=== PATIENT | male | born 1995 | race African-American/Black ===

== ENCOUNTER 2020-09-01 00:06 | Emergency (ER) | payer OTHER ==
[~2020-09-01] VITALS: Ht 167.6 cm; Wt 65.8 kg
[2020-09-01] MEDS ORDERED: IBUPROFEN600 M1 ORAL (00:43)
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
[2020-09-01 00:52] VITALS: BP 124/59
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
== END 2020-09-01 01:40 | disposition home or self-care (01) ==
LOC: EMR 00:23
DX: S16.1XXA Strain of muscle, fascia and tendon at neck level, initial encounter (principal); V42.6XXA Car passenger injured in collision with two- or three-wheeled motor vehicle in traffic accident, initial encounter; Y92.411 Interstate highway as the place of occurrence of the external cause
CPT/HCPCS: 72052; Z7502; 99283